=== PATIENT | male | born 1955 | race Caucasian/White ===

== ENCOUNTER 2018-05-30 23:17 | Inpatient (IN) | payer BC ==
--- NOTE | 2018-05-30 23:45 | C.PDOC ---
History Of Present Illness Patient had 2 seizures at home. One witnessed by his and the other one by the medics. Pt at present is not post ictal . states he is compliant with his medications. No f/c/n/v. No incontinence. Pleasant , cooperative Time Seen by Provider: 05/30/18 23:44 Chief Complaint (Nursing): Seizure History Per: Patient History/Exam Limitations: no limitations Recent Seizure Activity Began: Hours Ago: Number Of Seizures: Multiple (2) Length Of Seizures (Duration): Seconds Quality Of Seizure: Generalized Post-ictal Period: Yes Severity: Moderate Pain Scale Rating Of: 4 Recent travel outside of the [place]: No Additional History Per: Family Past Medical History Reviewed: Historical Data, Nursing Documentation, Vital Signs Vital Signs: Last Vital Signs Temp 99.0 F 05/30/18 23:30 Pulse 120 H 05/30/18 23:30 Resp 24 05/30/18 23:30 BP 183/76 H 05/30/18 23:30 Pulse Ox 98 05/30/18 23:30 - Medical History PMH: Anxiety, HTN, Seizures (03/01/16) Denies: Chronic Kidney Disease - [facility] Procedures INSERTION OF ENDOTRACHEAL AIRWAY INTO TRACHEA, VIA OPENING (02/28/16) RESPIRATORY VENTILATION, 24-96 CONSECUTIVE HOURS (02/28/16) Family History: States: No Known Family Hx - Social History Hx Alcohol Use: No Hx Substance Use: No - Immunization History Hx Tetanus Toxoid Vaccination: No Hx Influenza Vaccination: No Hx Pneumococcal Vaccination: No Review Of Systems Constitutional: Negative for: Fever, Chills Eyes: Negative for: Redness ENT: Negative for: Throat Pain Cardiovascular: Negative for: Chest Pain Respiratory: Negative for: Shortness of Breath Gastrointestinal: Negative for: Abdominal Pain Genitourinary: Negative for: Dysuria Musculoskeletal: Negative for: Back Pain Skin: Negative for: Rash Neurological: Negative for: Weakness, Confusion Psych: Negative for: Anxiety Physical Exam - Physical Exam Appears: Non-toxic, No Acute Distress Skin: Warm Head: Normacephalic Eye(s): bilateral: Normal Inspection Oral Mucosa: Moist Neck: Supple Chest: Symmetrical Cardiovascular: Rhythm Regular Respiratory: No Rales, No Rhonchi, No Wheezing Gastrointestinal/Abdominal: Soft, No Tenderness, No Distention Back: Normal Inspection Extremity: Normal ROM Extremity: Bilateral: Atraumatic Neurological/Psych: Oriented x3, Normal Speech, Normal Cognition Gait: Steady ED Course And Treatment - Laboratory Results Result Diagrams: 05/31/18 00:15 05/31/18 00:15 O2 Sat by Pulse Oximetry: 98 Pulse Ox Interpretation: Normal Progress Note: 12:20 AM pt having a generalized seizure. 2 mg iv ativan given Disposition Discussed With : Tasneem Desai Comment: accepted the pt on hi sservice and took over the care at 12:51 AM Doctor Will See Patient In The: Hospital Counseled Patient/Family Regarding: Studies Performed, Diagnosis - Disposition Disposition: HOSPITALIZED Disposition Time: 23:45 Condition: FAIR Forms: Revision3 (Faroese) - POA Present On Arrival: Poor Glycemic Control - Clinical Impression Clinical Impression: Tonic-clonic seizure Decision To Admit - Pt Status Changed To: Hospital Disposition Of: Inpatient - Admit Certification Admit to Inpatient:: After my assessment, the patient will require hospitalization for at least two midnights. This is because of the severity of symptoms shown, intensity of services needed, and/or the medical risk in this patient being treated as an outpatient. - InPatient: Physician Admission Certification: I certify that this patient requires 2 or more midnights of care for the following reason:: After my assessment, the patient will require hospitalization for at least two midnights. This is because of the severity of symptoms shown, intensity of services needed, and/or the medical risk in this patient being treated as an outpatient. - . Bed Request Type: Regular Admitting Physician: Tasneem Desai Patient Diagnosis: Tonic-clonic seizure
[2018-05-30] MEDS ORDERED: Sodium Chloride 0.9% 500 ML IV ONE (23:49)
[2018-05-31 00:23] LABS: BASO % 0.3 % (0.0-2.0); EOS # 0.1 K/uL (0.0-0.7); EOS % 0.6 % (0.0-4.0); LYMPH # 1.3 K/uL (1.0-4.3); LYMPH % 10.9 % (20.0-40.0); MEAN CELL VOLUME 90.5 fL (80.0-94.0); MEAN CORPUSCULAR HEMOGLOBIN 30.5 pg (27.0-31.0); MEAN CORPUSCULAR HGB CONC 33.6 g/dL (33.0-37.0); MEAN PLATELET VOLUME 7.6 fL (7.2-11.7); MONO # 0.7 K/uL (0.0-0.8); MONO % 5.4 % (0.0-10.0); NEUT % 82.8 % (50.0-75.0); RBC 4.61 Mil/uL (4.40-5.90); RED CELL DISTRIBUTION WIDTH 14.5 % (11.5-14.5); WHITE BLOOD COUNT 12.1 K/uL (4.8-10.8)
[2018-05-31 00:33] LABS: ALB/GLOB RATIO 1.5 (1.0-2.1); ALBUMIN 4.3 g/dL (3.5-5.0); BLOOD UREA NITROGEN 21 mg/dL (9-20); CALCIUM 9.4 mg/dl (8.6-10.4); GFR NON-AFRICAN AMERICAN > 60
[2018-05-31 00:34] LABS: ALT/SGPT 34 U/L (21-72); AST/SGOT 33 U/L (17-59)
[2018-05-31 02:12] LABS: URINE BILIRUBIN NEGATIVE (NEGATIVE); URINE BLOOD 1+ (NEGATIVE); URINE CLARITY Clear (Clear); URINE COLOR Yellow (YELLOW); URINE GLUCOSE (UA) 1+ mg/dL (Normal); URINE LEUKOCYTE ESTERASE NEG Leu/uL (Negative); URINE PROTEIN 1+ mg/dL (NEGATIVE); URINE URIC ACID CRYSTALS OCC /hpf (<OCC); URINE UROBILINOGEN NORMAL mg/dL (0.2-1.0)
[2018-05-31] MEDS ORDERED: FENOFIBRATE NANOCRYSTALLIZED 160 MG PO SCH (10:00)
[2018-05-31] MEDS ORDERED: PRAVASTATIN SODIUM 40 MG PO SCH (10:00)
[2018-05-31] MEDS: (Novolog) Insulin Aspart, Recombinant 100 u/ml 10 ml vial SC SCH ×3 (11:08→22:30)
[2018-05-31 13:53] VITALS: RESP 20
--- NOTE | 2018-05-31 16:00 | RAD ---
Date of service: 05/31/2018 PROCEDURE: CHEST RADIOGRAPH, 1 VIEW HISTORY: seizure COMPARISON: 03/02/2016 FINDINGS: LUNGS: Clear. PLEURA: No pneumothorax or pleural fluid seen. CARDIOVASCULAR: No aortic atherosclerotic calcification present. Normal. OSSEOUS STRUCTURES: No significant abnormalities. VISUALIZED UPPER ABDOMEN: Normal. OTHER FINDINGS: None. IMPRESSION: No active disease.
[2018-06-01] MEDS: (Novolog) Insulin Aspart, Recombinant 100 u/ml 10 ml vial SC SCH ×3 (08:11→16:51)
--- NOTE | 2018-06-01 09:55 | HP ---
HISTORY OF PRESENT ILLNESS: A 62 year old male who presented to the hospital with chief complaint of seizures which was well controlled . The patient is on Keppra. PHYSICAL EXAMINATION: GENERAL: The patient is awake, alert, and oriented. VITAL SIGNS: Temperature 98, pulse 90. HEENT: Within normal limits. NECK: Supple. CHEST: Symmetrical. HEART: Regular. ABDOMEN: Soft. EXTREMITIES: No edema. ASSESSMENT AND PLAN: The patient suffers from chronic seizures. The patient to bed rest, supportive care. Tasneem Desai MD
--- NOTE | 2018-06-01 13:40 | CP.PCM.PN ---
Subjective - Date & Time of Evaluation Date of Evaluation: 06/01/18 Time of Evaluation: 13:37 - Subjective Subjective: PGY3 Note for Dr. Lind This patient was seen and examined at bedside this AM; this patient has no complaints today or overnight events. He denies all symptoms; he states he is 100% compliant with his medications and never misses a dose. Objective - Vital Signs/Intake and Output Vital Signs (last 24 hours): Temp Pulse Resp BP Pulse Ox 98.8 F 71 20 137/78 96 06/01/18 07:59 06/01/18 07:59 06/01/18 07:59 06/01/18 10:52 06/01/18 07:59 Intake and Output: 06/01/18 06/01/18 06:59 18:59 Intake Total 300 240 Balance 300 240 - Medications Medications: Current Medications Acetaminophen (Tylenol 325mg Tab) 650 mg PO QID PRN PRN Reason: Pain, moderate (4-7) Last Admin: 05/31/18 10:45 Dose: 650 mg Alprazolam (Xanax) 0.5 mg PO BID [facility] Last Admin: 06/01/18 10:52 Dose: 0.5 mg Amlodipine Besylate (Norvasc) 10 mg PO DAILY [facility] Last Admin: 06/01/18 10:52 Dose: 10 mg Aspirin (Ecotrin) 81 mg PO DAILY [facility] Last Admin: 06/01/18 10:51 Dose: 81 mg Fenofibrate (Tricor) 145 mg PO DAILY [facility] Last Admin: 06/01/18 10:53 Dose: 145 mg Heparin Sodium (Porcine) (Heparin) 5,000 units SC Q12 [facility] Last Admin: 06/01/18 10:53 Dose: 5,000 units Hydrochlorothiazide (Hydrodiuril) 25 mg PO DAILY [facility] Last Admin: 06/01/18 10:53 Dose: 25 mg Insulin Aspart (Novolog) 0 unit SC ACHS [facility]; Protocol Last Admin: 06/01/18 11:57 Dose: Not Given Levetiracetam (Keppra) 500 mg PO HS [facility] Last Admin: 05/31/18 22:29 Dose: 500 mg Levetiracetam (Keppra) 500 mg PO QAM [facility] Losartan Potassium (Cozaar) 100 mg PO DAILY [facility] Last Admin: 06/01/18 10:51 Dose: 100 mg Metformin HCl (Glucophage) 1,000 mg PO BID [facility] Last Admin: 06/01/18 10:52 Dose: 1,000 mg Metoprolol Tartrate (Lopressor) 25 mg PO BID [facility] Last Admin: 06/01/18 10:52 Dose: 25 mg Rosuvastatin Calcium (Crestor) 5 mg PO HS [facility] Last Admin: 05/31/18 22:29 Dose: 5 mg - Labs Labs: 05/31/18 00:15 05/31/18 00:15 - Constitutional Appears: Well, Non-toxic - Head Exam Head Exam: ATRAUMATIC, NORMAL INSPECTION - Eye Exam Eye Exam: EOMI, Normal appearance, PERRL Pupil Exam: PERRL - ENT Exam ENT Exam: Mucous Membranes Moist - Neck Exam Neck Exam: Full ROM. absent: Lymphadenopathy - Respiratory Exam Respiratory Exam: Clear to Ausculation Bilateral, NORMAL BREATHING PATTERN. absent: Rales, Rhonchi, Wheezes - Cardiovascular Exam Cardiovascular Exam: REGULAR RHYTHM, +S1, +S2 - GI/Abdominal Exam GI & Abdominal Exam: Soft, Normal Bowel Sounds. absent: Tenderness - Extremities Exam Extremities Exam: Full ROM. absent: Calf Tenderness - Back Exam Back Exam: absent: CVA tenderness (L), CVA tenderness (R) - Neurological Exam Neurological Exam: Alert, Awake, CN II-XII Intact, Normal Gait, Oriented x3 - Psychiatric Exam Psychiatric exam: Normal Affect - Skin Skin Exam: Warm Assessment and Plan - Assessment and Plan (Free Text) Assessment: 62yo M admitted for breakthrough Seizures Breakthrough Seizures -patient has not had seizure activity since 05/30 -as per Dr. Mayfield; will increase keppra to 500mg BID instead of his 750mg total; patient to f/u with Dr. Mayfield as an outpatient for siezures -patient should not drive until he is cleared by neurology, or operate heavy machinery The patient will continue taking all of his other home medications as prescribed The patient is cleared for d/c as per Dr. Giselle Thompson PGY3
--- NOTE | 2018-06-01 13:46 | CON ---
DATE: 06/01/2018 NEUROLOGY CONSULTATION CHIEF COMPLAINT: Seizure. HISTORY OF PRESENTING ILLNESS: This is a 62-year-old man with a history of seizure disorder while he was on Keppra 250 mg in the morning and 500 mg at night, hypertension, type 2 diabetes mellitus, diabetic peripheral neuropathy. He has had two breakthrough seizures back to back, most likely a complex partial seizure with mild postictal state, but no bowel or bladder incontinence. His sleep hygiene is much better now. He did have an elevated systolic and diastolic blood pressures as well as hyperglycemia which could have provoked the event. Currently, he is stabilized. We have increased Keppra to 500 mg by mouth twice daily. He is moving all extremities. No focal weakness of the extremities. His blood sugar is currently elevated today. PAST MEDICAL HISTORY: As above. SOCIAL HISTORY: No illicit drug abuse, smoking, or EtOH abuse at this time. ALLERGIES: CODEINE AND MORPHINE. MEDICATIONS: Reviewed by nurse reconciliation sheet. REVIEW OF SYSTEMS: A 14-point review of systems negative except as in HPI. FAMILY HISTORY: Noncontributory. PHYSICAL EXAMINATION: VITAL SIGNS: Temperature 98.8, pulse rate 71, blood pressure 134/70, respiratory rate 20, oxygen saturation 96% on room air. GENERAL: The patient is sitting up in bed, in no acute distress. HEENT: Head is atraumatic, normocephalic. PERRLA. Extraocular movements intact. NECK: Supple. No JVD. No adenopathy noted. LUNGS: Clear to auscultation. No adventitious sounds. HEART: S1 and S2. Normal rate and rhythm. No murmurs, rubs, or gallops. ABDOMEN: Soft, nontender, nondistended. Bowel sounds present. EXTREMITIES: No clubbing. No cyanosis. Peripheral pulses are 2+ bilaterally. NEUROLOGIC: The patient is alert and oriented to person, place, month and year. Speech is ____. Cranial nerves II through XII are intact. Motor: Moves all extremities equally. No pronator drift. Sensory exam: Decreased light touch and pinprick up to the calves bilaterally, decreased vibration of the toes. DTRs are 2+ throughout, 1 at both knees and ankles. Coordination: [id number] intact. No dysmetria noted. Gait deferred for now. LABORATORY DATA: Sodium 136, potassium 3.8, chloride 98, BUN 21, creatinine 1.2, random glucose 220. IMPRESSION: Breakthrough complex partial seizure with underlying hypertensive urgency and hyperglycemia. RECOMMENDATIONS: At this time, recommend: 1. We will increase Keppra to 500 mg by mouth twice daily. 2. Sleep hygiene advised. 3. Seizure precautions. 4. Keep blood sugar between 140 to 180. 5. Keep blood pressure between 130s to 140s systolic and diastolic in the 80s. 6. Aspirin 81 mg, Lipitor 40 mg for stroke prevention. 7. Continue with fenofibrate 145 mg orally daily for underlying hypertriglyceridemia . 8. Continue Xanax 0.5 mg orally daily anxiety and will follow up with me as an outpatient for outpatient EEG. Thank you for this consult. Shaquille Mayfield MD
[2018-06-02] MEDS: (Novolog) Insulin Aspart, Recombinant 100 u/ml 10 ml vial SC SCH (07:44)
[2018-06-02 09:38] VITALS: PULSE 60; TEMP 97.9; O2SAT 95
--- NOTE | 2018-06-02 10:24 | CP.PCM.PN ---
Subjective - Date & Time of Evaluation Date of Evaluation: 06/02/18 Time of Evaluation: 09:25 - Subjective Subjective: Medicine progress note ( Dr. Desai's service) Patient was seen and examined at bedside with present. Patient states that he is doing well with no acutes issues. Patient denies any symptoms of fever, chills, nausea, vomiting, chest pain, palpitations, shortness of breath, headache, visual disturbances, nausea or vomiting and numbness or tingling. Objective - Vital Signs/Intake and Output Vital Signs (last 24 hours): Temp Pulse Resp BP Pulse Ox 97.9 F 60 20 129/66 95 06/02/18 08:00 06/02/18 08:00 06/02/18 08:00 06/02/18 08:00 06/02/18 08:00 Intake and Output: 06/02/18 06/02/18 06:59 18:59 Intake Total 250 Balance 250 - Medications Medications: Current Medications Acetaminophen (Tylenol 325mg Tab) 650 mg PO QID PRN PRN Reason: Pain, moderate (4-7) Last Admin: 05/31/18 10:45 Dose: 650 mg Alprazolam (Xanax) 0.5 mg PO BID [facility] Last Admin: 06/01/18 17:34 Dose: 0.5 mg Amlodipine Besylate (Norvasc) 10 mg PO DAILY [facility] Last Admin: 06/01/18 10:52 Dose: 10 mg Aspirin (Ecotrin) 81 mg PO DAILY [facility] Last Admin: 06/01/18 10:51 Dose: 81 mg Fenofibrate (Tricor) 145 mg PO DAILY [facility] Last Admin: 06/01/18 10:53 Dose: 145 mg Heparin Sodium (Porcine) (Heparin) 5,000 units SC Q12 [facility] Last Admin: 06/01/18 21:32 Dose: 5,000 units Hydrochlorothiazide (Hydrodiuril) 25 mg PO DAILY [facility] Last Admin: 06/01/18 10:53 Dose: 25 mg Insulin Aspart (Novolog) 0 unit SC ACHS [facility]; Protocol Last Admin: 06/02/18 07:44 Dose: Not Given Levetiracetam (Keppra) 500 mg PO HS [facility] Last Admin: 06/01/18 21:32 Dose: 500 mg Levetiracetam (Keppra) 500 mg PO QAM [facility] Losartan Potassium (Cozaar) 100 mg PO DAILY [facility] Last Admin: 06/01/18 10:51 Dose: 100 mg Metformin HCl (Glucophage) 1,000 mg PO BID [facility] Last Admin: 06/01/18 17:34 Dose: 1,000 mg Metoprolol Tartrate (Lopressor) 25 mg PO BID [facility] Last Admin: 06/01/18 17:34 Dose: 25 mg Rosuvastatin Calcium (Crestor) 5 mg PO HS [facility] Last Admin: 06/01/18 21:32 Dose: 5 mg - Labs Labs: 05/31/18 00:15 05/31/18 00:15 - Constitutional Appears: Non-toxic, No Acute Distress - Head Exam Head Exam: ATRAUMATIC, NORMAL INSPECTION - Eye Exam Eye Exam: EOMI, Normal appearance - ENT Exam ENT Exam: Mucous Membranes Moist - Respiratory Exam Respiratory Exam: Clear to Ausculation Bilateral, NORMAL BREATHING PATTERN. absent: Chest Wall Tenderness, Decreased Breath Sounds, Rhonchi, Wheezes - Cardiovascular Exam Cardiovascular Exam: REGULAR RHYTHM, +S1, +S2 - GI/Abdominal Exam GI & Abdominal Exam: Soft, Normal Bowel Sounds. absent: Distended, Firm, Guarding, Tenderness - Extremities Exam Extremities Exam: Normal Inspection. absent: Calf Tenderness, Full ROM, Joint Swelling, Pedal Edema, Tenderness - Neurological Exam Neurological Exam: Alert, Awake, Oriented x3 Neuro motor strength exam: Left Upper Extremity: 5, Right Upper Extremity: 5, Left Lower Extremity: 5, Right Lower Extremity: 5 - Psychiatric Exam Psychiatric exam: Normal Affect, Normal Mood - Skin Skin Exam: Normal Color Assessment and Plan (1) Seizures Assessment & Plan: Consultation: * Neurology, Dr. Mayfield * Recommendation for outpatient follow up and keppra 500mg PO BID EEG ( 02/29/16): Abnormal EEG, suggestive of seizures Patient is cleared from neurology standpoint and can be discharge Status: Acute (2) Diabetes Assessment & Plan: Accuchecks Metformin 1000mg PO BID ISS- Medium dose Status: Acute (3) HLD (hyperlipidemia) Assessment & Plan: Tricor 145mg PO Daily Crestor 5mg PO HS Status: Acute (4) Hypertension Assessment & Plan: Norvasc 10mg PO daily Cozaar 100mg PO daily HTCZ 25mg PO daily Status: Acute (5) History of coronary artery disease Assessment & Plan: Lopressor 25mg PO BID ASA 81mg PO QD Crestor 5mg PO HS Status: Acute (6) Anxiety Assessment & Plan: Xanax 0.5mg PO BID Status: Acute (7) Prophylactic measure Assessment & Plan: DVT: Heparin 5,000 units SC Q12HH Disposition: * Plans for discharge home as he is clear by Dr. Glynn, neurology for discharge and for outpatient follow up * Please continue home medications * Please Keppra 500mg PO BID * Patient should not drive until he is cleared by neurology or operate heavy machinery The patient is clear for d/c as per Dr. Desai He is to continue taking his other medications as prescribed except for keppra; we are increasing keppra to 500mg BID instead of the total of 750mg he was taking before He should see Dr. Abigail Mayfield within the week as well as Dr. Desai Continue with all other medications. All plans and management discussed with Dr. Desai Status: Acute
[2018-06-02 10:47] VITALS: BP 126/79
== END 2018-06-02 13:19 | disposition home or self-care (01) | DRG 101 ==
LOC: C.ER 23:17 → C.9E 05-31 00:48 → C.3T 05-31 12:34 → C.9E 05-31 12:38 → C.3T 05-31 13:19
PROVIDERS: ADMIT Internal Medicine Pulmonary Disease; ATTEND Internal Medicine Pulmonary Disease
DX: G40.209 Localization-related (focal) (partial) symptomatic epilepsy and epileptic syndromes with complex partial seizures, not intractable, without status epilepticus (principal); F41.9 Anxiety disorder, unspecified; E78.5 Hyperlipidemia, unspecified; E11.65 Type 2 diabetes mellitus with hyperglycemia; E11.42 Type 2 diabetes mellitus with diabetic polyneuropathy; I16.0 Hypertensive urgency; I10 Essential (primary) hypertension; I25.10 Atherosclerotic heart disease of native coronary artery without angina pectoris; Z79.84 Long term (current) use of oral hypoglycemic drugs

== ENCOUNTER 2018-06-02 23:08 | Inpatient (IN) | payer BC ==
[2018-06-02] MEDS ORDERED: Sodium Chloride 0.9% 1,000 ML IV ONE (23:33)
--- NOTE | 2018-06-02 23:46 | C.PDOC ---
History Of Present Illness 62 year old male presents to the ER after having a seizure witnessed by ARIAS. Patient was discharged from the hospital today for the same. He arrived to the ER post ictal and while in the ER had another generalized seizure. Chief Complaint (Nursing): Seizure History Per: Family History/Exam Limitations: clinical condition Recent Seizure Activity Began: Just Before Arrival Number Of Seizures: Multiple (2) Length Of Seizures (Duration): Unknown Quality Of Seizure: Generalized Precipitating Factor(s): Other (Not known) Post-ictal Period: Yes Recent travel outside of the [place]: No Past Medical History Reviewed: Historical Data, Nursing Documentation, Vital Signs Vital Signs: Last Vital Signs Temp Pulse 105 H 06/02/18 23:17 Resp 16 06/02/18 23:17 BP 187/77 H 06/02/18 23:17 Pulse Ox 97 06/02/18 23:17 - Medical History PMH: Anxiety, HTN, Seizures (03/01/16) Denies: Chronic Kidney Disease - [facility] Procedures INSERTION OF ENDOTRACHEAL AIRWAY INTO TRACHEA, VIA OPENING (02/28/16) RESPIRATORY VENTILATION, 24-96 CONSECUTIVE HOURS (02/28/16) Family History: States: Unknown Family Hx - Social History Hx Alcohol Use: No Hx Substance Use: No - Immunization History Hx Tetanus Toxoid Vaccination: No Hx Influenza Vaccination: No Hx Pneumococcal Vaccination: No Review Of Systems Review Of Systems: ROS cannot be obtained secondary to pt's inabilty to answer questions. (Post ictal) Physical Exam - Physical Exam Appears: Non-toxic Skin: Normal Color, Warm, Dry Head: Atraumatic, Normacephalic Eye(s): bilateral: Normal Inspection Oral Mucosa: Moist Neck: Normal, Supple Chest: Symmetrical, No Tenderness Cardiovascular: Rhythm Regular Respiratory: Normal Breath Sounds, No Rales, No Rhonchi, No Wheezing Gastrointestinal/Abdominal: Soft, No Tenderness Back: No CVA Tenderness Neurological/Psych: Oriented x3, Normal Speech ED Course And Treatment - Laboratory Results Result Diagrams: 06/02/18 23:53 06/02/18 23:53 ECG: Interpreted By Me, Viewed By Me ECG Rhythm: Sinus Tachycardia, ST/T Changes ECG Interpretation: No Acute Changes, Abnormal Interpretation Of ECG: Sinus tachycardia withST-T chsnges, abnormal tracings, no significant change from old tracings. Rate From EC O2 Sat by Pulse Oximetry: 97 (Room air) Pulse Ox Interpretation: Normal Progress Note: On reevaluation, patient is alert and oriented, no longer post ictal. Discussed with Dr. Sanjiv Brown, will admit patient for observation. Disposition Discussed With : Tasneem Desai Doctor Will See Patient In The: Hospital Counseled Patient/Family Regarding: Diagnosis - Disposition Disposition: HOSPITALIZED Disposition Time: 00:36 Condition: STABLE Forms: [facility] (Korean) - POA Present On Arrival: None - Clinical Impression Clinical Impression: Seizure disorder, Recurrent seizures - Scribe Statement The provider has reviewed the documentation as recorded by the Scribe Ankit Cormier All medical record entries made by the Scribe were at my direction and personally dictated by me. I have reviewed the chart and agree that the record accurately reflects my personal performance of the history, physical exam, medical decision making, and the department course for this patient. I have also personally directed, reviewed, and agree with the discharge instructions and disposition.
[2018-06-02 23:58] LABS: BASO % 0.4 % (0.0-2.0); EOS # 0.1 K/uL (0.0-0.7); EOS % 0.5 % (0.0-4.0); LYMPH % 16.5 % (20.0-40.0); MEAN CELL VOLUME 92.1 fL (80.0-94.0); MEAN CORPUSCULAR HEMOGLOBIN 30.2 pg (27.0-31.0); MEAN CORPUSCULAR HGB CONC 32.8 g/dL (33.0-37.0); MEAN PLATELET VOLUME 7.4 fL (7.2-11.7); MONO % 7.9 % (0.0-10.0); NEUT % 74.7 % (50.0-75.0); RBC 4.95 Mil/uL (4.40-5.90); RED CELL DISTRIBUTION WIDTH 14.2 % (11.5-14.5); WHITE BLOOD COUNT 12.1 K/uL (4.8-10.8)
[2018-06-03 00:15] LABS: ALB/GLOB RATIO 1.6 (1.0-2.1); ALBUMIN 4.7 g/dL (3.5-5.0); ALT/SGPT 42 U/L (21-72); AST/SGOT 28 U/L (17-59); BLOOD UREA NITROGEN 15 mg/dL (9-20); CALCIUM 9.4 mg/dl (8.6-10.4); GFR NON-AFRICAN AMERICAN > 60
[2018-06-03] MEDS ORDERED: Potassium Chloride 20 mEq/15 ml LIQ UD PO STA (00:29)
[2018-06-03] MEDS ORDERED: Potassium Chloride 20 mEq/15 ml LIQ UD ONE (00:49)
[2018-06-03 06:35] LABS: BASO % 0.4 % (0.0-2.0); EOS % 0.7 % (0.0-4.0); LYMPH # 1.1 K/uL (1.0-4.3); LYMPH % 17.7 % (20.0-40.0); MEAN CELL VOLUME 88.8 fL (80.0-94.0); MEAN CORPUSCULAR HEMOGLOBIN 29.2 pg (27.0-31.0); MEAN CORPUSCULAR HGB CONC 32.8 g/dL (33.0-37.0); MONO # 0.4 K/uL (0.0-0.8); MONO % 6.9 % (0.0-10.0); NEUT # 4.8 K/uL (1.8-7.0); NEUT % 74.3 % (50.0-75.0); RBC 4.3 Mil/uL (4.40-5.90); WHITE BLOOD COUNT 6.5 K/uL (4.8-10.8)
[2018-06-03 06:51] LABS: HEMOGLOBIN 12.5 g/dL (12.0-18.0)
[2018-06-03 07:04] LABS: BASO % 0.5 % (0.0-2.0); EOS % 0.8 % (0.0-4.0); HEMOGLOBIN 12.5 g/dL (12.0-18.0); LYMPH # 1.1 K/uL (1.0-4.3); LYMPH % 19.2 % (20.0-40.0); MEAN CELL VOLUME 88.6 fL (80.0-94.0); MEAN CORPUSCULAR HEMOGLOBIN 30.8 pg (27.0-31.0); MEAN CORPUSCULAR HGB CONC 34.7 g/dL (33.0-37.0); MONO # 0.4 K/uL (0.0-0.8); MONO % 7.3 % (0.0-10.0); NEUT # 4.3 K/uL (1.8-7.0); NEUT % 72.2 % (50.0-75.0); RBC 4.06 Mil/uL (4.40-5.90); RED CELL DISTRIBUTION WIDTH 14.2 % (11.5-14.5)
[2018-06-03 07:31] LABS: ALB/GLOB RATIO 1.3 (1.0-2.1); ALBUMIN 3.3 g/dL (3.5-5.0); ALT/SGPT 37 U/L (21-72); AST/SGOT 24 U/L (17-59); BLOOD UREA NITROGEN 14 mg/dL (9-20); CALCIUM 8.4 mg/dl (8.6-10.4); GFR NON-AFRICAN AMERICAN > 60
[2018-06-03 07:54] LABS: BARBITURATES, UR NEGATIVE (NEGATIVE); OPIATES, UR NEGATIVE (NEGATIVE); PHENCYCLIDINE, UR NEGATIVE (NEGATIVE)
[2018-06-03 08:12] LABS: BENZODIAZEPINES, UR POSITIVE (NEGATIVE)
--- NOTE | 2018-06-03 09:44 | CP.PCM.PCO ---
Physician Communication Note - Physician Communication Note Physician Communication Note: EEG ORDERED. WILL SEE PT. AWAIT DICTATION. MRI BRAIN
[2018-06-03] MEDS ORDERED: PRAVASTATIN SODIUM 40 MG PO SCH (10:45)
--- NOTE | 2018-06-03 11:25 | MRI ---
Date of service: 06/03/2018 PROCEDURE: MRI BRAIN WITHOUT CONTRAST HISTORY: seizures COMPARISON: Noncontrast head CT and brain MRI both from 02/29/2016. TECHNIQUE: Multiplanar, multisequence MR images of the brain were obtained without intravenous contrast enhancement. FINDINGS: HEMORRHAGE: None DWI: No evidence of an acute or early subacute infarction. BRAIN PARENCHYMA: Stable age related neuro degenerative changes are again seen comprised of diffuse cerebral atrophy chronic microangiopathy. A small chronic lacune is seen at the right frontal horn periventricular white matter versus other cause of trace cystic encephalomalacia. No mass effect or suspicious extra-axial fluid collection with midline brain anatomy is stable and unremarkable appearing throughout. VENTRICLES: Unremarkable. No hydrocephalus. CRANIUM: Unremarkable. ORBITS: Grossly unremarkable. PARANASAL SINUSES/MASTOIDS: Maxillary sinus cyst or potential polyp evident. VASCULAR SYSTEM: Skull base flow voids intact. OTHER FINDINGS: None. IMPRESSION: Stable limited age-related neuro degenerative findings as discussed above. No interval acute intracranial findings.
[2018-06-03] MEDS: Lacosamide 50 MG Tab PO SCH ×2 (12:47→18:20)
--- NOTE | 2018-06-03 15:36 | CP.PCM.PN ---
Subjective - Date & Time of Evaluation Date of Evaluation: 06/03/18 Time of Evaluation: 09:50 - Subjective Subjective: Medicine progress note ( Dr. Desai's service) Patient was seen and examined at bedside in the ED with present. Patient states that he is with improve symptoms and den no acutes issues. Patient denies any symptoms of fever, chills, nausea, vomiting, chest pain, palpitations, shortness of breath, headache, visual disturbances, nausea or vomiting and numbness or tingling. Patient is a 62 year old male with history of HTN, Type 2 DM, anxiety, PTSD, Seizure, who presents to the ED with complaints of witnessed seizure. Patient wa s discharge earlier after 3 days of admission for episodes of tonic-clonic seizure. As per , patient took his second dose of Keppra at dinner and as they were watching TV together, patient was noted to have repeated uncontrollable right hand tapping on the arm rest of the couch around 11pm, whic h then led to full body jerking that was more significant on the right side of his body. Patient denies an specific aura before the episode and denies any witness foaming at the mouth, urinary or fecal incontinence. Patient's called EMS and 10 minutes after arrival tot he ED, patient was witnessed to have another episode seizure in the ED. PMD: Has one Neurologist: Dr. Mayfield PMHx: HTN, Type 2 DM, anxiety, PTSD, Seizure PSHx: Left ankle repair FHx: Mother (HTN and at age 82 due to complication of CVA), Father: HTN, DM, COPD ( at age 80), Two sisters with anxiety Medications: ASA 81mg PO daily, Cozaar 100mg PO daily, recently switched to keppra 500mg PO BID (from 250mg am and 500 at HS), Norvasc 10mg PO QD, Pravastatin 40mg PO HS, Metformin 1,000mg PO BID, Tricor 160mg PO daily, Toprol 25mg PO BID, HTCZ 25mg PO QD Allergies: Codeine and morphine Social Hx: Lives with . Denies current or former use of tobacco, ETOH and illicit drugs Objective - Vital Signs/Intake and Output Vital Signs (last 24 hours): Temp Pulse Resp BP Pulse Ox 98.2 F 69 16 150/69 98 06/03/18 08:25 06/03/18 12:05 06/03/18 12:05 06/03/18 12:05 06/03/18 12:05 - Medications Medications: Current Medications Alprazolam (Xanax) 0.5 mg PO BID [facility] Amlodipine Besylate (Norvasc) 10 mg PO DAILY [facility] Aspirin (Ecotrin) 81 mg PO DAILY [facility] Last Admin: 06/03/18 10:45 Dose: 81 mg Home Med (Fenofibrate Nanocrystallized [Triglide]) 160 mg PO DAILY [facility] Hydrochlorothiazide (Hydrodiuril) 25 mg PO DAILY [facility] Last Admin: 06/03/18 12:18 Dose: 25 mg Lacosamide (Vimpat) 50 mg PO BID [facility] Last Admin: 06/03/18 12:47 Dose: 50 mg Levetiracetam (Keppra) 500 mg PO BID [facility] Last Admin: 06/03/18 09:31 Dose: 500 mg Losartan Potassium (Cozaar) 100 mg PO DAILY [facility] Metformin [facility] ([facility]) [facility] Metoprolol Tartrate (Lopressor) 25 mg PO BID [facility] Rosuvastatin Calcium (Crestor) 5 mg PO HS [facility] - Labs Labs: 06/03/18 07:02 06/03/18 06:32 - Constitutional Appears: Well, No Acute Distress - Head Exam Head Exam: ATRAUMATIC, NORMAL INSPECTION - Eye Exam Eye Exam: EOMI, Normal appearance - ENT Exam ENT Exam: Mucous Membranes Moist - Respiratory Exam Respiratory Exam: Clear to Ausculation Bilateral, NORMAL BREATHING PATTERN. absent: Prolonged Expiratory Phase, Rhonchi, Wheezes, Respiratory Distress - Cardiovascular Exam Cardiovascular Exam: REGULAR RHYTHM, +S1, +S2. absent: Bradycardia, Clicks, Diastolic murmur, Irregular Rhythm - GI/Abdominal Exam GI & Abdominal Exam: Soft, Normal Bowel Sounds. absent: Distended, Firm, Guarding, Rigid, Tenderness - Extremities Exam Extremities Exam: Normal Inspection. absent: Calf Tenderness, Pedal Edema - Neurological Exam Neurological Exam: Alert, Awake, Oriented x3 - Psychiatric Exam Psychiatric exam: Normal Affect, Normal Mood - Skin Skin Exam: Normal Color Assessment and Plan (1) Tonic-clonic seizure Assessment & Plan: Consultation: * Neurology, Dr. Mayfield -Management as per recommendation EEG ( 02/29/16): Abnormal EEG, suggestive of seizures, F/u repeat EEG Brain MRI: Stable limited age-related neuro degenerative findings as discussed above. No interval acute intracranial findings. Management: * Keppra 500mg PO BID * Addition Vimpat 50mg PO BID Status: Acute (2) Diabetes Assessment & Plan: Accuchecks Metformin 1000mg PO BID ISS- Medium dose Status: Acute (3) HLD (hyperlipidemia) Assessment & Plan: Tricor 160mg PO Daily Crestor 5mg PO HS Status: Acute (4) Hypertension Assessment & Plan: Norvasc 10mg PO daily Cozaar 100mg PO daily HTCZ 25mg PO daily Status: Acute (5) History of coronary artery disease Assessment & Plan: Lopressor 25mg PO BID ASA 81mg PO QD Crestor 5mg PO HS Status: Acute (6) Prophylactic measure Assessment & Plan: DVT: Lovenox 40mg SC daily GI: Not indicated at this time All plans and management discussed with Dr. Desai Status: Acute
--- NOTE | 2018-06-03 18:37 | CON ---
DATE: 06/03/2018 CHIEF COMPLAINT: Seizure. HISTORY OF PRESENT ILLNESS: This is a 62-year-old man with a history of seizures, recently seen in the hospital on 06/01/2018 for breakthrough seizures, was placed on Keppra, increased Keppra to 500 mg p.o. b.i.d.; with a history of type 2 diabetes mellitus; anxiety, on Xanax; PTSD; who presented with a generalized tonic-clonic event while watching TV when his noticed uncontrolled right hand tapping as well as whole body jerking followed by foaming of the mouth and urinary incontinence. He had a witnessed seizure also in the ER. I placed him on Vimpat 50 mg p.o. b.i.d. in addition to his Keppra 500 mg p.o. b.i.d. He mentioned that he was tapering down his Xanax himself, which likely the seizure aggravated by Xanax withdrawal. I have restarted his regular doses of Xanax prescribed by his psychiatrist. His MRI of the brain showed no intracranial abnormalities. His EEG shows mild bilateral cerebral dysfunction, no evidence of epileptiform activity. He will follow up with me in the office next week. PAST MEDICAL HISTORY: Hypertension, type 2 diabetes mellitus, anxiety, PTSD, seizure. PAST SURGICAL HISTORY: Left ankle repair. MEDICATIONS: Reviewed by nurse reconciliation sheet. ALLERGIES: CODEINE AND MORPHINE. FAMILY HISTORY: Noncontributory. SOCIAL HISTORY: No illicit drug abuse, smoking or EtOH abuse at this time. REVIEW OF SYSTEMS: A 14-point review of systems negative except as in HPI. PHYSICAL EXAMINATION: VITAL SIGNS: Temperature 98.2, pulse rate 66, blood pressure 147/69, respiratory rate 18, oxygen saturation 98% on room air. GENERAL: The patient is sitting up in bed, in no acute distress. HEENT: Head is atraumatic and normocephalic. PERRLA. Extraocular movements intact. NECK: Supple. No JVD. No adenopathy noted. LUNGS: Clear to auscultation. No adventitious sounds. HEART: S1 and S2. Normal rate and rhythm. No murmurs, rubs or gallops. ABDOMEN: Soft, nontender, nondistended. Bowel sounds present. EXTREMITIES: No clubbing. No cyanosis. Peripheral pulses are 2+ bilaterally. NEUROLOGIC: The patient is alert and oriented to person, place, month and year. Speech is fluent without any errors. Cranial nerves II through XII are intact. Motor: Moves all extremities equally. No pronator drift seen. Sensory: Decreased light touch to pinprick up to the calves bilaterally, decreased vibration of the toes. DTRs are 2+ throughout, 1 at both knees and ankles. Coordination: [id number] intact. Gait deferred for now. No dysmetria noted. LABORATORY DATA: Sodium is 137, potassium 3.3, chloride 104, carbon dioxide 27, BUN of 14, creatinine 0.9, random glucose 106. IMPRESSION: Breakthrough seizures, likely secondary to Xanax withdrawal since the patient is tapering the Xanax by himself without consulting the psychiatrist. I have restarted him back on his original doses of Xanax and will follow up with his psychiatrist in regards to the Xanax tapering. In addition, in regards to his breakthrough seizures, his MRI of the brain showed no acute intracranial abnormalities, some mild degenerative changes. His EEG showed mild bilateral cerebral dysfunction with no evidence of any epileptiform activity. At this time, we will continue with his Keppra 500 mg p.o. b.i.d. and add Vimpat 50 mg p.o. b.i.d. for seizure prevention. Sleep hygiene was advised. He will follow up with me as an outpatient. Shaquille Mayfield MD
--- NOTE | 2018-06-03 23:34 | CARD ---
APPROVED REPORT Date of service: 06/02/2018 EKG Measurement Heart [id number] <Conclusion> Sinus tachycardia Possible Left atrial enlargement Left ventricular hypertrophy with repolarization abnormality Abnormal ECG
--- NOTE | 2018-06-04 06:20 | HP ---
HISTORY OF PRESENT ILLNESS: A 62-year-old male chief complaint cause seizures. The patient was discharged from the hospital recently, went home, took his medication, and the patient was seen to have another seizure spell. . The patient is a nonsmoker, nondrinker. PHYSICAL EXAMINATION: GENERAL: The patient is awake, alert, and oriented. VITAL SIGNS: Temperature 98, pulse 90. HEENT: Within normal limits. NECK: Supple. CHEST: Symmetrical. HEART: Regular. ABDOMEN: Soft. EXTREMITIES: No edema. ASSESSMENT AND PLAN: Patient suffers from seizures. Patient get bedrest, supportive care. Tasneem Desai MD
[2018-06-04 08:02] LABS: BASO % 0.5 % (0.0-2.0); EOS # 0.1 K/uL (0.0-0.7); EOS % 1.6 % (0.0-4.0); HEMOGLOBIN 13.3 g/dL (12.0-18.0); LYMPH % 17.5 % (20.0-40.0); MEAN CELL VOLUME 88.8 fL (80.0-94.0); MEAN CORPUSCULAR HEMOGLOBIN 30.4 pg (27.0-31.0); MEAN CORPUSCULAR HGB CONC 34.3 g/dL (33.0-37.0); MEAN PLATELET VOLUME 7.3 fL (7.2-11.7); MONO # 0.4 K/uL (0.0-0.8); MONO % 7.2 % (0.0-10.0); NEUT # 4.4 K/uL (1.8-7.0); NEUT % 73.2 % (50.0-75.0); RBC 4.38 Mil/uL (4.40-5.90); RED CELL DISTRIBUTION WIDTH 14.1 % (11.5-14.5); WHITE BLOOD COUNT 5.9 K/uL (4.8-10.8)
[2018-06-04 08:24] LABS: ALB/GLOB RATIO 1.5 (1.0-2.1); ALBUMIN 3.8 g/dL (3.5-5.0); ALT/SGPT 42 U/L (21-72); AST/SGOT 23 U/L (17-59); BLOOD UREA NITROGEN 15 mg/dL (9-20); CALCIUM 8.8 mg/dl (8.6-10.4); GFR NON-AFRICAN AMERICAN > 60
--- NOTE | 2018-06-04 09:07 | EEG ---
Copied To: Shaquille Mayfield MD Attending MD: DATE: CONDITION OF THE RECORDING: Drowsy. DIAGNOSIS: Seizure. MEDICATIONS: Keppra. INTERPRETATION: This is a 16-channel international recording. Background activity was composed of 6 to 7 cycles per second. There was a small amount of beta activity of 15 to 20 cycles per second seen in this recording. There was increased amount of theta activity of 5 to 7 cycles per second seen in this tracing. Drowsiness was characterized by mixed beta and theta activities. Sleep was characterized by vertex transient waves, sleep spindles, and bilateral slowing. Photic stimulation showed no change in the tracing. No evidence of any paroxysmal activity. CONCLUSION: This is an abnormal electroencephalogram consistent with mild diffuse slowing throughout the recording consistent with mild bilateral cerebral dysfunction. No evidence of any epileptiform activity. Please clinically correlate. Shaquille Mayfield MD
--- NOTE | 2018-06-04 09:21 | CP.PCM.PN ---
Subjective - Date & Time of Evaluation Date of Evaluation: 06/04/18 Time of Evaluation: 09:22 - Subjective Subjective: PGY3 Note for Dr. Desai This patient was seen and examined at bedside this AM; patient denies any overnight events or acute complaints; states had 2 seizures at home before coming into hospital and also had another tonic clonic episode in the ED; denies any seizures overnight; denies fevers/chills, LAZARO, CP, SOB, abdominal pain, N/V?D , dysuria/freq/urg or lower extremity pain/swelling. Objective - Vital Signs/Intake and Output Vital Signs (last 24 hours): Temp Pulse Resp BP Pulse Ox 98.2 F 71 20 161/69 H 97 06/04/18 04:35 06/04/18 04:35 06/04/18 04:35 06/04/18 04:35 06/04/18 08:00 Intake and Output: 06/04/18 06/04/18 06:59 18:59 Intake Total 120 Balance 120 - Medications Medications: Current Medications Alprazolam (Xanax) 2 mg PO DAILY [facility] Alprazolam (Xanax) 1 mg PO 1200,1900 [facility] Last Admin: 06/03/18 18:22 Dose: 1 mg Alprazolam (Xanax) 0.25 mg PO 1200,1900 [facility] Stop: 06/10/18 19:01 Last Admin: 06/03/18 18:22 Dose: 0.25 mg Amlodipine Besylate (Norvasc) 10 mg PO DAILY [facility] Aspirin (Ecotrin) 81 mg PO DAILY [facility] Last Admin: 06/03/18 10:45 Dose: 81 mg Enoxaparin Sodium (Lovenox) 40 mg SC DAILY [facility] Fenofibrate (Tricor) 145 mg PO DAILY [facility] Hydrochlorothiazide (Hydrodiuril) 25 mg PO DAILY [facility] Last Admin: 06/03/18 12:18 Dose: 25 mg Lacosamide (Vimpat) 50 mg PO BID [facility] Last Admin: 06/03/18 18:20 Dose: 50 mg Levetiracetam (Keppra) 500 mg PO BID [facility] Last Admin: 06/03/18 18:20 Dose: 500 mg Losartan Potassium (Cozaar) 100 mg PO DAILY [facility] Met[facility] ([facility] Last Admin: 06/04/18 08:30 Dose: 1,000 mg Metoprolol Tartrate (Lopressor) 25 mg PO BID [facility] Last Admin: 06/03/18 18:20 Dose: 25 mg Rosuvastatin Calcium (Crestor) 5 mg PO HS [facility] Last Admin: 06/03/18 21:15 Dose: 5 mg - Labs Labs: 06/04/18 07:51 06/04/18 07:51 - Constitutional Appears: Well, Non-toxic - Head Exam Head Exam: ATRAUMATIC - Eye Exam Eye Exam: EOMI, PERRL Pupil Exam: PERRL - ENT Exam ENT Exam: Mucous Membranes Moist - Neck Exam Neck Exam: Full ROM. absent: Lymphadenopathy - Respiratory Exam Respiratory Exam: Clear to Ausculation Bilateral, NORMAL BREATHING PATTERN. absent: Rales, Rhonchi, Wheezes - Cardiovascular Exam Cardiovascular Exam: REGULAR RHYTHM, +S1, +S2 - GI/Abdominal Exam GI & Abdominal Exam: Soft, Normal Bowel Sounds. absent: Tenderness - Extremities Exam Extremities Exam: absent: Calf Tenderness - Back Exam Back Exam: NORMAL INSPECTION. absent: CVA tenderness (L), CVA tenderness (R) - Neurological Exam Neurological Exam: Alert, Awake, CN II-XII Intact, Oriented x3 - Skin Skin Exam: Warm Assessment and Plan - Assessment and Plan (Free Text) Assessment: 62yo M admitted for breakthrough seizures Break Through Seizure Tonic Clonic Consultation: * Neurology, Dr. Mayfield -Management as per recommendation EEG ( 02/29/16): Abnormal EEG, suggestive of seizures, F/u repeat EEG; repeat showed generalized slowing with no spikes Brain MRI: Stable limited age-related neuro degenerative findings as discussed above. No interval acute intracranial findings. Management: * Keppra 500mg PO BID; can consider increasing dose to 1000BID; was loaded with 500mg IV keppra in ED * Addition Vimpat 50mg PO BID * Xanax 2mg daily, 1.25mg @ 12:00 and 19:00; patient did not receive this dosing on last admission which could have contributed to break through seizures Diabetes;chronic Accuchecks Metformin 1000mg PO BID ISS- Medium dose HLD (hyperlipidemia) Tricor 160mg PO Daily Crestor 5mg PO HS Hypertension;chronic Norvasc 10mg PO daily Cozaar 100mg PO daily HTCZ 25mg PO daily Lopressor 25mg PO BID History of coronary artery disease Lopressor 25mg PO BID ASA 81mg PO QD Crestor 5mg PO HS Prophylactic measure DVT: Lovenox 40mg SC daily GI: Not indicated at this time All plans and management discussed with Dr. Desai
[2018-06-04] MEDS: Enoxaparin 40 mg Syringe SC SCH (10:00)
[2018-06-04] MEDS ORDERED: FENOFIBRATE NANOCRYSTALLIZED 160 MG PO SCH (10:00)
[2018-06-04] MEDS: Lacosamide 50 MG Tab PO SCH ×2 (10:50→17:17)
[2018-06-04 15:59] LABS: SQUAMOUS EPITHIAL < 1 /hpf (0-5); URINE AMORPHOUS SEDIMENT OCC /ul (<OCC); URINE BILIRUBIN NEGATIVE (NEGATIVE); URINE BLOOD NEGATIVE (NEGATIVE); URINE CLARITY Hazy (Clear); URINE COLOR Yellow (YELLOW); URINE GLUCOSE (UA) NORMAL (Normal); URINE LEUKOCYTE ESTERASE NEG Leu/uL (Negative); URINE PROTEIN NEGATIVE (NEGATIVE)
[2018-06-05 07:43] LABS: BASO % 0.5 % (0.0-2.0); EOS # 0.1 K/uL (0.0-0.7); EOS % 2.2 % (0.0-4.0); HEMOGLOBIN 12.9 g/dL (12.0-18.0); LYMPH # 1.4 K/uL (1.0-4.3); LYMPH % 20.2 % (20.0-40.0); MEAN CELL VOLUME 89.7 fL (80.0-94.0); MEAN CORPUSCULAR HEMOGLOBIN 30.1 pg (27.0-31.0); MEAN CORPUSCULAR HGB CONC 33.6 g/dL (33.0-37.0); MEAN PLATELET VOLUME 7.3 fL (7.2-11.7); MONO # 0.5 K/uL (0.0-0.8); MONO % 7.1 % (0.0-10.0); NEUT # 4.7 K/uL (1.8-7.0); RBC 4.29 Mil/uL (4.40-5.90); RED CELL DISTRIBUTION WIDTH 14.4 % (11.5-14.5); WHITE BLOOD COUNT 6.7 K/uL (4.8-10.8)
[2018-06-05 07:52] VITALS: PULSE 59; RESP 20; TEMP 97.9; O2SAT 96
[2018-06-05 08:12] LABS: ALB/GLOB RATIO 1.3 (1.0-2.1); ALBUMIN 3.4 g/dL (3.5-5.0); ALT/SGPT 36 U/L (21-72); AST/SGOT 23 U/L (17-59); BLOOD UREA NITROGEN 23 mg/dL (9-20); GFR NON-AFRICAN AMERICAN > 60
[2018-06-05 08:37] LABS: HEPATITIS B SURFACE AG Negative (NEGATIVE)
[2018-06-05 08:43] LABS: HEPATITIS A IGM NEGATIVE (NEGATIVE); HEPATITIS B CORE AB NEGATIVE (NEGATIVE)
[2018-06-05 08:52] LABS: HEPATITIS C ANTIBODY NEGATIVE (NEGATIVE)
[2018-06-05] MEDS: Lacosamide 50 MG Tab PO SCH (09:42)
[2018-06-05] MEDS: Enoxaparin 40 mg Syringe SC SCH (09:42)
[2018-06-05 09:43] VITALS: BP 149/64
--- NOTE | 2018-06-05 10:02 | CP.PCM.PN ---
Subjective - Date & Time of Evaluation Date of Evaluation: 06/05/18 Time of Evaluation: 10:02 - Subjective Subjective: PGY3 Note for Dr. Desai This patient was seen and examined at bedside this AM; he denies any events overnight and states he slept very well. He denies LAZARO, CP, SOB, abdominal pain, N/V/D or lower extremity pain/swelling. No seizure activity since admission. Objective - Vital Signs/Intake and Output Vital Signs (last 24 hours): Temp Pulse Resp BP Pulse Ox 97.9 F 59 L 20 149/64 96 06/05/18 07:52 06/05/18 07:52 06/05/18 07:52 06/05/18 09:41 06/05/18 07:52 - Medications Medications: Current Medications Alprazolam (Xanax) 2 mg PO DAILY [facility] Last Admin: 06/05/18 09:42 Dose: 2 mg Alprazolam (Xanax) 1 mg PO 1200,1900 [facility] Last Admin: 06/04/18 19:19 Dose: 1 mg Alprazolam (Xanax) 0.25 mg PO 1200,1900 [facility] Stop: 06/10/18 19:01 Last Admin: 06/04/18 19:19 Dose: 0.25 mg Amlodipine Besylate (Norvasc) 10 mg PO DAILY [facility] Last Admin: 06/05/18 09:42 Dose: 10 mg Aspirin (Ecotrin) 81 mg PO DAILY [facility] Last Admin: 06/05/18 09:42 Dose: 81 mg Enoxaparin Sodium (Lovenox) 40 mg SC DAILY [facility] Last Admin: 06/05/18 09:42 Dose: 40 mg Fenofibrate (Tricor) 145 mg PO DAILY [facility] Last Admin: 06/05/18 09:42 Dose: 145 mg Hydrochlorothiazide (Hydrodiuril) 25 mg PO DAILY [facility] Last Admin: 06/05/18 09:42 Dose: 25 mg Lacosamide (Vimpat) 50 mg PO BID [facility] Last Admin: 06/05/18 09:42 Dose: 50 mg Levetiracetam (Keppra) 500 mg PO BID [facility] Last Admin: 06/05/18 09:42 Dose: 500 mg Losartan Potassium (Cozaar) 100 mg PO DAILY [facility] Last Admin: 06/05/18 09:42 Dose: 100 mg Metformin HCl (Glucophage Xr) 1,000 mg PO BIDCC [facility] Last Admin: 06/05/18 08:32 Dose: 1,000 mg Metoprolol Tartrate (Lopressor) 25 mg PO BID [facility] Last Admin: 06/05/18 09:41 Dose: 25 mg Rosuvastatin Calcium (Crestor) 5 mg PO HS [facility] Last Admin: 06/04/18 21:58 Dose: 5 mg - Labs Labs: 06/05/18 07:37 06/05/18 07:37 Assessment and Plan - Assessment and Plan (Free Text) Assessment: Appears: Well, Non-toxic - Head Exam Head Exam: ATRAUMATIC - Eye Exam Eye Exam: EOMI, PERRL Pupil Exam: PERRL - ENT Exam ENT Exam: Mucous Membranes Moist - Neck Exam Neck Exam: Full ROM. absent: Lymphadenopathy - Respiratory Exam Respiratory Exam: Clear to Ausculation Bilateral, NORMAL BREATHING PATTERN. absent: Rales, Rhonchi, Wheezes - Cardiovascular Exam Cardiovascular Exam: REGULAR RHYTHM, +S1, +S2 - GI/Abdominal Exam GI & Abdominal Exam: Soft, Normal Bowel Sounds. absent: Tenderness - Extremities Exam Extremities Exam: absent: Calf Tenderness - Back Exam Back Exam: NORMAL INSPECTION. absent: CVA tenderness (L), CVA tenderness (R) - Neurological Exam Neurological Exam: Alert, Awake, CN II-XII Intact, Oriented x3 - Skin Skin Exam: Warm Assessment and Plan - Assessment and Plan (Free Text) Assessment: 62yo M admitted for breakthrough seizures Break Through Seizure; resolved Tonic Clonic Consultation: * Neurology, Dr. Mayfield; thank you for your help -Management as per recommendation EEG ( 02/29/16): Abnormal EEG, suggestive of seizures, F/u repeat EEG; repeat showed generalized slowing with no spikes Brain MRI: Stable limited age-related neuro degenerative findings as discussed above. No interval acute intracranial findings. Management: * Keppra 500mg PO BID; can consider increasing dose to 1000BID; was loaded with 500mg IV keppra in ED * Addition Vimpat 50mg PO BID * Xanax 2mg daily, 1.25mg @ 12:00 and 19:00; patient did not receive this dosing on last admission which could have contributed to break through seizures Patient will continue Keppra 500 mg BID, Vimpat (new) 50mg BID, and Xanax as before as outpatient Diabetes;chronic Accuchecks Metformin 1000mg PO BID ISS- Medium dose HLD (hyperlipidemia) Tricor 160mg PO Daily Crestor 5mg PO HS Hypertension;chronic Norvasc 10mg PO daily Cozaar 100mg PO daily HTCZ 25mg PO daily Lopressor 25mg PO BID History of coronary artery disease Lopressor 25mg PO BID ASA 81mg PO QD Crestor 5mg PO HS Prophylactic measure DVT: Lovenox 40mg SC daily GI: Not indicated at this time All plans and management discussed with Dr. Desai The patient is cleared for d/c as Dr. Desai c/w Vimpat BID 50mg c/w Keppra 500mg BID c/w Xanax dosing as before 2mg morning, and 1.5mg at 12:00 and 19:00; the patient likely had breathrough seizures because we did not give him this on his last admission. It would be advised to start tapering off of this medication as it can interfere greatly with seizure treatment if it is missed and is very addictive.
== END 2018-06-05 11:50 | disposition home or self-care (01) | DRG 101 ==
LOC: C.ER 23:08 → C.9E 06-03 00:37 → C.6T 06-03 21:02 → OBSVTOIN 06-04 07:21
PROVIDERS: ADMIT Internal Medicine Pulmonary Disease; ATTEND Internal Medicine Pulmonary Disease
DX: G40.89 Other seizures (principal); F13.239 Sedative, hypnotic or anxiolytic dependence with withdrawal, unspecified; F43.10 Post-traumatic stress disorder, unspecified; E78.5 Hyperlipidemia, unspecified; E11.9 Type 2 diabetes mellitus without complications; I10 Essential (primary) hypertension; I25.10 Atherosclerotic heart disease of native coronary artery without angina pectoris; Z79.84 Long term (current) use of oral hypoglycemic drugs